=== PATIENT | female | born 1965 | race Caucasian/White ===

== ENCOUNTER 2020-08-12 18:29 | Emergency (ER) | payer OTHER ==
[~2020-08-12] VITALS: Ht 154.9 cm; Wt 56.2 kg
[~2020-08-12 18:29] MED LIST: CELEXA20 MG PO; PRINIVIL10 MG PO
[2020-08-12 20:20] LABS: URINE BILIRUBIN NEGATIVE (Negative); URINE BLOOD TRACE (Negative); URINE CLARITY CLEAR; URINE COLOR YELLOW; URINE GLUCOSE-RANDOM* NEGATIVE (Negative); URINE KETONES NEGATIVE (Negative); URINE LEUKOCYTES-REFLEX TRACE (Negative); URINE NITRITE-REFLEX NEGATIVE (Negative); URINE PROTEIN (DIPSTICK) NEGATIVE (Negative); URINE SPECIFIC GRAVITY <= 1.005 (1.005-1.035); URINE UROBILINOGEN 0.2 E.U./dl (0.2-1.0)
[2020-08-12 20:43] LABS: ABSOLUTE NEUTROPHILS 3.7 thou/uL (1.4-8.2); BASOPHILS 0.7 % (0.0-2.0); EOSINOPHILS 1.2 % (0.0-3.0); HEMATOCRIT 33.2 % (37.0-47.0); HEMOGLOBIN 11.4 gm/dL (12.0-15.0); LYMPHOCYTES 37.4 % (24.0-44.0); MCH 32.7 pg (26.0-34.0); MCHC 34.4 g/dL (28.0-37.0); MONOCYTES 8.5 % (1.0-8.0); PLATELET COUNT 304 thou/uL (150-400); POLYS 52.2 % (36.0-66.0); RBC 3.49 mil/uL (4.20-5.00); RDW 12.4 % (10.5-14.5)
[2020-08-12 20:51] LABS: CALCIUM 8.7 mg/dL (8.5-10.1); CREATININE 0.6 mg/dL (0.6-1.0); POTASSIUM 3.7 mmol/L (3.5-5.1)
[2020-08-12 21:43] VITALS: BP 155/74
== END 2020-08-12 21:43 | disposition home or self-care (01) ==
LOC: ER 18:29
PROVIDERS: Nurse Practitioner
DX: R53.1 Weakness (principal); E87.1 Hypo-osmolality and hyponatremia; H57.89 Other specified disorders of eye and adnexa; R22.31 Localized swelling, mass and lump, right upper limb; L53.9 Erythematous condition, unspecified